=== PATIENT | female | born 1980 | race Two or more races ===

== ENCOUNTER 2018-08-06 10:35 | Outpatient (CLI) | payer BC ==
[2018-08-06 11:58] LABS: ADD MAN DIFF? NO
[2018-08-06 12:09] LABS: WHITE BLOOD COUNT 10.4 10^3/ul (4.8-10.8)
[2018-08-06 12:09] LABS: BASOPHILS % 0.3 % (0.0-2.0); EOSINOPHILS # 0.1 10^3/ul (0.0-0.5); EOSINOPHILS % 0.7 % (0.0-7.0); HEMATOCRIT 34.9 % (37.0-47.0); HEMOGLOBIN 11.7 g/dl (12.0-16.0); LYMPHOCYTES # 1.9 10^3/ul (0.8-2.9); LYMPHOCYTES % 18.3 % (15.0-51.0); MEAN CORPUSCULAR HEMOGLOBIN 30.5 pg (29.0-33.0); MEAN CORPUSCULAR HGB CONC 33.5 g/dl (32.0-37.0); MEAN CORPUSCULAR VOLUME 90.9 fl (82.0-101.0); MEAN PLATELET VOLUME 10.1 fl (7.4-10.4); MONOCYTE # 0.8 10^3/ul (0.3-0.9); MONOCYTES % 7.3 % (0.0-11.0); NEUTROPHIL # 7.5 10^3/ul (1.6-7.5); PLATELET COUNT 241 10^3/UL (140-415); RED BLOOD COUNT 3.84 10^6/ul (4.20-5.40); RED CELL DISTRIBUTION WIDTH 12.1 % (11.5-14.5)
[2018-08-06 12:12] LABS: ADD UMIC NO; UR ASCORBIC ACID NEGATIVE (NEGATIVE); UR BILIRUBIN (Dip) NEGATIVE (NEGATIVE); UR BLOOD (Dip) NEGATIVE (NEGATIVE); UR CLARITY CLEAR (CLEAR); UR COLOR YELLOW (YELLOW); UR GLUCOSE (Dip) NEGATIVE (NEGATIVE); UR KETONES (Dip) NEGATIVE (NEGATIVE); UR LEUKOCYTE ESTERASE (Dip) NEGATIVE Leu/ul (NEGATIVE); UR NITRITE (Dip) NEGATIVE (NEGATIVE); UR SPECIFIC GRAVITY (Dip) 1.012 (1.003-1.030); UR TOTAL PROTEIN (Dip) NEGATIVE (NEGATIVE); UR UROBILINOGEN (Dip) NEGATIVE (NEGATIVE)
== END 2018-08-06 15:12 | disposition home or self-care (01) ==
LOC: OBT 10:35 → L-D 10:36 → OBT 15:12
DX: O26.893 Other specified pregnancy related conditions, third trimester (principal); O09.523 Supervision of elderly multigravida, third trimester; Z3A.34 34 weeks gestation of pregnancy
CPT/HCPCS: 76817; 76818; 81003; 85025; 87086

== ENCOUNTER 2018-09-20 11:08 | Outpatient (CLI) | payer BC | END 2018-09-20 15:31 | disposition home or self-care (01) | LOC: OBT 11:08 → L-D 11:08 → OBT 15:31 | DX: O62.9 Abnormality of forces of labor, unspecified (principal); O09.523 Supervision of elderly multigravida, third trimester; Z3A.40 40 weeks gestation of pregnancy | CPT/HCPCS: 76815; 76818 ==

== ENCOUNTER 2018-09-22 20:08 | Inpatient (IN) | payer BC ==
[2018-09-22] MEDS ORDERED: LACTATED RINGER'S 1,000 ML IV (22:07)
[2018-09-22] MEDS ORDERED: LIDOCAINE 1% (MPF) 30 ML INJ INJ (22:30)
[2018-09-22] MEDS ORDERED: METHYLERGONOVINE 0.2 MG INJ IM (22:30)
[2018-09-22] MEDS ORDERED: OXYTOCIN 30 UNITS/LR 500 ML IV (22:30)
[2018-09-22] MEDS ORDERED: CARBOPROST 250 MCG INJ IM (22:30)
[2018-09-22] MEDS ORDERED: MISOPROSTOL 200 MCG TAB PR (22:30)
[2018-09-22] MEDS: LACTATED RINGER'S 1,000 ML IV (22:33)
[2018-09-22 22:36] LABS: ADD MAN DIFF? NO
[2018-09-22 22:39] LABS: BASOPHIL # 0.1 10^3/ul (0.0-0.1); BASOPHILS % 0.5 % (0.0-2.0); EOSINOPHILS % 0.2 % (0.0-7.0); HEMOGLOBIN 13.5 g/dl (12.0-16.0); LYMPHOCYTES # 1.9 10^3/ul (0.8-2.9); LYMPHOCYTES % 15.6 % (15.0-51.0); MEAN CORPUSCULAR HEMOGLOBIN 29.6 pg (29.0-33.0); MEAN CORPUSCULAR HGB CONC 32.9 g/dl (32.0-37.0); MEAN CORPUSCULAR VOLUME 89.9 fl (82.0-101.0); MEAN PLATELET VOLUME 10.8 fl (7.4-10.4); MONOCYTE # 0.8 10^3/ul (0.3-0.9); MONOCYTES % 6.2 % (0.0-11.0); NEUTROPHIL # 9.3 10^3/ul (1.6-7.5); NEUTROPHILS % 76.8 % (39.0-77.0); PLATELET COUNT 267 10^3/UL (140-415); RED BLOOD COUNT 4.56 10^6/ul (4.20-5.40); RED CELL DISTRIBUTION WIDTH 13.8 % (11.5-14.5)
[2018-09-22 22:39] LABS: WHITE BLOOD COUNT 12.1 10^3/ul (4.8-10.8)
[2018-09-22 22:43] LABS: INR 0.85; PROTIME 11.7 Sec (11.9-14.9); PT RATIO 0.9
[2018-09-22] MEDS: MISOPROSTOL 50 MCG CAPSULE PO (23:51)
[2018-09-23] MEDS: LACTATED RINGER'S 1,000 ML IV ×4 (02:38→21:43)
[2018-09-23 03:00] LABS: AMPHETAMINE/METHAMPHETAMINE Negative (NEGATIVE); BARBITURATES Negative (NEGATIVE); BENZODIAZEPINES Negative (NEGATIVE); CANNABINOIDS Positive (NEGATIVE); COCAINE Negative (NEGATIVE)
[2018-09-23 03:16] LABS: OPIATES Negative (NEGATIVE)
[2018-09-23] MEDS: MISOPROSTOL 50 MCG CAPSULE PO (04:10)
[2018-09-23] MEDS ORDERED: FENTAnyl 2MCG/ML-ROPIV 0.2% 100 ML (04:25)
[2018-09-23] MEDS ORDERED: NALOXONE (0.4 MG/ML) INJ IV (04:30)
[2018-09-23] MEDS ORDERED: ONDANSETRON 4 MG INJ IV (04:30)
[2018-09-23] MEDS: DIPHENHYDRAMINE 50 MG INJ IV (05:50)
[2018-09-23] MEDS: OXYTOCIN 30 UNITS/LR 500 ML IV (09:30)
[2018-09-23] MEDS: FENTAnyl 2MCG/ML-ROPIV 0.2% 100 ML BAG EPI ×2 (14:08→22:16)
[2018-09-23 21:21] LABS: RAPID PLASMA REAGIN NONREACTIVE (NR)
[2018-09-24] MEDS: LACTATED RINGER'S 1,000 ML IV ×2 (02:43→08:56)
[2018-09-24] MEDS: hydrOXYzine PAMOATE 25 MG CAP PO (02:43)
[2018-09-24] MEDS: FENTAnyl 2MCG/ML-ROPIV 0.2% 100 ML BAG EPI ×2 (06:22→12:57)
[2018-09-24] MEDS: OXYTOCIN 30 UNITS/LR 500 ML IV ×2 (15:00→16:39)
[2018-09-24] MEDS ORDERED: LACTATED RINGER'S 1,000 ML IV* (15:11)
[2018-09-24] MEDS ORDERED: DIPHENHYDRAMINE 50 MG INJ IV (15:30)
[2018-09-24] MEDS ORDERED: OXYTOCIN 30 UNITS/LR 500 ML IV (15:30)
[2018-09-24] MEDS ORDERED: ONDANSETRON 4 MG TAB PO (15:30)
[2018-09-24] MEDS ORDERED: DIPHENHYDRAMINE 25 MG CAP PO (15:30)
[2018-09-24] MEDS ORDERED: CARBOPROST 250 MCG INJ IM (15:30)
[2018-09-24] MEDS ORDERED: MISOPROSTOL 200 MCG TAB PR (15:30)
[2018-09-24] MEDS ORDERED: HYDROCODONE/APAP (5/325) TAB PO (15:30)
[2018-09-24] MEDS ORDERED: NA PHOSPHATE/BIPHOS 133 ML ENEMA PR (15:30)
[2018-09-24] MEDS ORDERED: SENNA/DOCUSATE NA (8.6MG/50MG) TAB PO (15:30)
[2018-09-24] MEDS ORDERED: ONDANSETRON 4 MG INJ IV (15:30)
[2018-09-24] MEDS ORDERED: MAGNESIUM HYDROXIDE 30ML CUP PO (15:30)
[2018-09-24] MEDS: IBUPROFEN 800 MG TAB PO (16:49)
[2018-09-24] MEDS: HYDROCODONE/APAP (5/325) TAB PO (17:49)
[2018-09-24] MEDS: IBUPROFEN 600 MG TAB PO ×2 (18:00→23:24)
[2018-09-24] MEDS: BENZOCAINE 20% 56 ML SPRAY TOP (20:16)
[2018-09-24] MEDS: WITCH HAZEL/GLYCERIN PAD PR (20:16)
[2018-09-24] MEDS: SENNA/DOCUSATE NA (8.6MG/50MG) TAB PO (21:29)
[2018-09-25] MEDS: HYDROCODONE/APAP (5/325) TAB PO ×2 (02:15→09:05)
[2018-09-25] MEDS: IBUPROFEN 600 MG TAB PO ×4 (05:25→23:31)
[2018-09-25 06:42] LABS: ADD MAN DIFF? NO
[2018-09-25 06:50] LABS: BASOPHIL # 0.1 10^3/ul (0.0-0.1); BASOPHILS % 0.3 % (0.0-2.0); EOSINOPHILS # 0.2 10^3/ul (0.0-0.5); EOSINOPHILS % 0.9 % (0.0-7.0); HEMATOCRIT 27.3 % (37.0-47.0); HEMOGLOBIN 9.1 g/dl (12.0-16.0); LYMPHOCYTES # 2.2 10^3/ul (0.8-2.9); LYMPHOCYTES % 12.8 % (15.0-51.0); MEAN CORPUSCULAR HEMOGLOBIN 30.5 pg (29.0-33.0); MEAN CORPUSCULAR HGB CONC 33.3 g/dl (32.0-37.0); MEAN CORPUSCULAR VOLUME 91.6 fl (82.0-101.0); MEAN PLATELET VOLUME 10.4 fl (7.4-10.4); MONOCYTE # 1.1 10^3/ul (0.3-0.9); MONOCYTES % 6.4 % (0.0-11.0); NEUTROPHIL # 13.3 10^3/ul (1.6-7.5); NEUTROPHILS % 78.8 % (39.0-77.0); PLATELET COUNT 185 10^3/UL (140-415); RED BLOOD COUNT 2.98 10^6/ul (4.20-5.40); RED CELL DISTRIBUTION WIDTH 13.8 % (11.5-14.5)
[2018-09-25 06:50] LABS: WHITE BLOOD COUNT 16.9 10^3/ul (4.8-10.8)
[2018-09-25] MEDS: SENNA/DOCUSATE NA (8.6MG/50MG) TAB PO ×2 (09:01→23:31)
[2018-09-25] MEDS: BENZOCAINE 20% 56 ML SPRAY TOP (23:39)
[2018-09-25] MEDS: WITCH HAZEL/GLYCERIN PAD PR (23:39)
[2018-09-25] MEDS: LANOLIN HPA 1 PKT TOP (23:39)
[2018-09-26] MEDS: DIBUCAINE 1% 30 GM OINT TOP (00:15)
[2018-09-26 06:38] LABS: ADD MAN DIFF? NO
[2018-09-26 06:44] LABS: WHITE BLOOD COUNT 12.6 10^3/ul (4.8-10.8)
[2018-09-26 06:44] LABS: BASOPHILS % 0.3 % (0.0-2.0); EOSINOPHILS # 0.1 10^3/ul (0.0-0.5); HEMATOCRIT 27.3 % (37.0-47.0); HEMOGLOBIN 8.7 g/dl (12.0-16.0); LYMPHOCYTES # 1.7 10^3/ul (0.8-2.9); LYMPHOCYTES % 13.6 % (15.0-51.0); MEAN CORPUSCULAR HEMOGLOBIN 29.5 pg (29.0-33.0); MEAN CORPUSCULAR HGB CONC 31.9 g/dl (32.0-37.0); MEAN CORPUSCULAR VOLUME 92.5 fl (82.0-101.0); MEAN PLATELET VOLUME 10.3 fl (7.4-10.4); MONOCYTE # 0.8 10^3/ul (0.3-0.9); MONOCYTES % 5.9 % (0.0-11.0); NEUTROPHIL # 9.9 10^3/ul (1.6-7.5); NEUTROPHILS % 78.3 % (39.0-77.0); PLATELET COUNT 185 10^3/UL (140-415); RED BLOOD COUNT 2.95 10^6/ul (4.20-5.40); RED CELL DISTRIBUTION WIDTH 13.9 % (11.5-14.5)
[2018-09-26] MEDS: IBUPROFEN 600 MG TAB PO ×2 (07:04→12:33)
[2018-09-26] MEDS: SENNA/DOCUSATE NA (8.6MG/50MG) TAB PO (09:00)
[2018-09-26] MEDS: DIPHTH/TET/ACEL PERTUSS (ADULT) 0.5 ML VIAL IM* (09:31)
[2018-09-26] MEDS: VARICELLA VACCINE LIVE/PF 1,350 UNIT/0.5 ML ML SC* (09:32)
[2018-09-26] MEDS: MEASLES,MUMPS,RUBELLA VACCINE INJ SC* (09:32)
== END 2018-09-26 16:00 | disposition home or self-care (01) | DRG 807 ==
LOC: PP1 09-24 18:23 → L-D 20:08
PROVIDERS: Specialist
PROC: 10E0XZZ Delivery of Products of Conception, External Approach (ICD-10-PCS; principal; 2018-09-24)
PROC: 0KQM0ZZ Repair Perineum Muscle, Open Approach (ICD-10-PCS; 2018-09-24)
PROC: 10907ZC Drainage of Amniotic Fluid, Therapeutic from Products of Conception, Via Natural or Artificial Opening (ICD-10-PCS; 2018-09-24)
DX: O48.0 Post-term pregnancy (principal); O77.0 Labor and delivery complicated by meconium in amniotic fluid; O76 Abnormality in fetal heart rate and rhythm complicating labor and delivery; O70.1 Second degree perineal laceration during delivery; Z37.0 Single live birth; Z3A.40 40 weeks gestation of pregnancy
CPT/HCPCS: 62319; 80307; 85025; 85610; 85730; 86592; 86850; 86900; 86901; 90716; 99464